=== PATIENT | male | born 1980 | race Caucasian/White ===

== ENCOUNTER 2016-11-25 20:51 | Emergency (ER) | payer MEDICAID ==
[~2016-11-25] VITALS: Ht 180.3 cm; Wt 117.9 kg
[2016-11-25 21:03] VITALS: BP 131/97
== END 2016-11-26 00:29 | disposition left against medical advice (07) ==
LOC: ER 21:06
DX: R11.10 Vomiting, unspecified (principal); Z53.21 Procedure and treatment not carried out due to patient leaving prior to being seen by health care provider

== ENCOUNTER → 2018-09-18 | Outpatient (CLI) | payer MEDICAID ==
[~2018-09-18] MED LIST: ALBUTEROL SULF 2.5 MG/0.5ML(0.5%) NEB SOLN ONE
== END | disposition home or self-care (01) ==
LOC: PF 08:24
PROVIDERS: ATTEND Internal Medicine Pulmonary Disease
DX: J45.909 Unspecified asthma, uncomplicated (principal)
CPT/HCPCS: 94060; J7611

== ENCOUNTER 2020-09-09 20:46 | Emergency (ER) | payer MEDICAID ==
[~2020-09-09] VITALS: Ht 185.4 cm; Wt 136.1 kg
[2020-09-09 22:11] LABS: Basophils # (auto) 0 10 ^3/uL (0-0.2); Basophils % (auto) 0.4 % (0.0-2.0); Eosinophils # (auto) 0.1 10 ^3/uL (0-0.8); Hemoglobin 14.6 g/dL (13.5-17.5); Lymphocytes # (auto) 1.9 10 ^3/uL (0.4-5.4); Mean Corpuscular Hemoglobin 29.2 pg (28.0-32.0); Mean Corpuscular Hgb Conc. 33.3 g/dL (32.0-36.0); Mean Corpuscular Volume 87.6 fL (80.0-100.0); Monocytes # (auto) 0.4 10 ^3/uL (0-1.3); Monocytes % (auto) 7.1 % (0.0-12.0); Neutrophils # (auto) 3.8 10 ^3/uL (1.6-8.6); Neutrophils % (auto) 60.5 % (37.0-80.0); Nucleated Red Blood Cells % 0.1 %; Platelet Count (auto) 200 10^3/uL (140-450); Red Blood Cells 5.02 10^6/uL (4.5-5.90); Red Cell Distribution Width 15.3 % (11.8-14.3); White Blood Cell 6.2 10^3/uL (4.4-10.8)
[2020-09-09 22:34] LABS: Chloride 111 mmol/L (98-107); Potassium 3.2 mmol/L (3.5-5.1)
[2020-09-09 22:39] LABS: INR 1.13 (0.9-1.15); Partial Thromboplastin Time 26.8 sec (23.0-31.2)
[2020-09-09 22:45] LABS: Alanine Aminotransferase 32 U/L (16-61); Albumin 3.5 g/dL (3.4-5.0); Alkaline Phosphatase 98 U/L (45-117); Aspartate Aminotransferase 15 U/L (15-37); BUN/Creatinine Ratio 6.4; Bilirubin, Total 0.7 mg/dL (0.2-1.0); Blood Urea Nitrogen 5 mg/dL (7-18); Calcium 8.4 mg/dL (8.5-10.1); Carbon Dioxide 28 mmol/L (21-32); GFR African American 143 mL/min; GFR Non-African American 118 mL/min; Glucose 94 mg/dL (74-106); Magnesium 2.3 mg/dL (1.6-2.6); Total Protein 7.2 g/dL (6.4-8.2)
[2020-09-09 23:43] VITALS: BP 123/81
[2020-09-10 00:15] LABS: Anion Gap 4 (5-15); Sodium 143 mmol/L (136-145)
== END 2020-09-10 00:44 | disposition left against medical advice (07) ==
LOC: ER 20:46 → EDBD 20:46 → ER 09-10 00:44
DX: R07.2 Precordial pain (principal); R55 Syncope and collapse; J45.909 Unspecified asthma, uncomplicated; K21.9 Gastro-esophageal reflux disease without esophagitis; G89.29 Other chronic pain; F17.210 Nicotine dependence, cigarettes, uncomplicated
CPT/HCPCS: 36415; 70450; 71045; 80053; 83735; 83880; 84443; 84484; 85025; 85379; 85610; 85730; 93005